=== PATIENT | male | born 1990 | race Caucasian/White ===

== ENCOUNTER 2020-11-02 16:06 | Emergency (ER) | payer OTHER ==
[~2020-11-02] VITALS: Ht 167.6 cm; Wt 87.6 kg
[2020-11-02] MEDS ORDERED: predniSONE 20 MG TAB PO ONE (18:45)
[2020-11-02] MEDS ORDERED: MECL50TA PO (18:49)
[2020-11-02] MEDS ORDERED: ONDA4TAB6 PO (18:49)
[2020-11-02] MEDS ORDERED: PRED20TA PO (18:49)
[2020-11-02 19:04] VITALS: BP 123/76
== END 2020-11-02 19:09 | disposition home or self-care (01) ==
LOC: M ED 16:06
DX: H81.10 Benign paroxysmal vertigo, unspecified ear (principal); H81.399 Other peripheral vertigo, unspecified ear; Z88.0 Allergy status to penicillin
CPT/HCPCS: 99283; J7512

== ENCOUNTER → 2022-10-08 | Outpatient (REF) | payer OTHER ==
[~2022-10-08] MED LIST: MECL50TA PO; ONDA4TAB6 PO; PRED20TA PO
[2022-10-08 14:58] LABS: SEMEN APPEARANCE OPAQUE (OPAQUE); SEMEN VISCOSITY LIQUID (LIQUID); SEMEN VOLUME 2.7 ml (2.0-5.0); SEMEN pH 8.5 (7.0-8.0)
[2022-10-08 14:59] LABS: WBC CONCENTRATION <=1 M/ml (<=1 M/ml)
== END ==
LOC: M LAB REF 14:12
PROVIDERS: ATTEND Surgery
DX: Z30.2 Encounter for sterilization (principal)